=== PATIENT | male | born 1970 | race Caucasian/White ===

== ENCOUNTER 2017-05-15 09:40 | Inpatient (IN) ==
[~2017-05-15 09:40] MED LIST: Povidone-Iodine 22.5 ML, Sodium Chloride IRRigation 500 ML IR ONE
--- NOTE | 2017-05-15 09:54 | History & Physical Report ---
Date of Encounter: 05/15/17 Time of Encounter: 09:54 24 Hour HP Update - Instructions Instructions: If the History and Physical is less than 30 days old and was completed prior to A.M. admission and or procedure and has NOT been updated on calendar day of procedure please complete this update prior to performing procedure. - Update Patient reports changes in Medical Condition: No Changes in examination, assessment, or condition: No Changes in Medication: No Preop tests/diagnostics Reviewed: Yes Surgery Remains Indicated: Yes Consent for Planned Operative Procedure(s) Verified: Yes - Pre-Operative Checklist Preoperative Checklist Indicated: No Prophylactic Antibiotic Ordered: Yes Is VTE Prophylaxis Indicated?: Yes
--- NOTE | 2017-05-15 10:00 | Discharge Summary ---
Date of Encounter: 05/18/17 Time of Encounter: 07:44 - Discharge Diagnosis (1) Arthritis of left knee Priority: Primary Status: Chronic (2) Status post total left knee replacement Priority: Primary Status: Acute (3) Coronary artery disease Priority: Secondary Status: Chronic Qualifiers: Coronary Disease-Associated Artery/Lesion type: unspecified vessel or lesion type [place] vs. transplanted heart: [place] heart Associated angina: with unspecified angina Qualified Code(s): I25.119 - Atherosclerotic heart disease of [place] coronary artery with unspecified angina pectoris (4) History of myocardial infarction Priority: Secondary Status: Chronic (5) History of coronary artery stent placement Priority: Secondary Status: Chronic (6) Tobacco use Priority: Secondary Status: Chronic - Discharge Medications Home Medications: Aspirin [Lo-Dose Aspirin EC] 81 mg PO DAILY 10/21/16 [History] Atorvastatin [Lipitor] 40 mg PO HS 10/21/16 [History] Cyclobenzaprine [Flexeril] 10 mg PO TID #10 tablet 10/21/16 [Rx] Ibuprofen [Motrin] 800 mg PO Q8HR #20 tablet 10/21/16 [Rx] Nitroglycerin [Nitrostat] 0.4 mg SL Q5M 10/21/16 [History] Venlafaxine XR (24 HR) [Effexor XR] 75 mg PO DAILY 10/21/16 [History] hydrOXYzine HCl [Hydroxyzine HCl] 25 mg PO Q8H 10/21/16 [History] traZODone [TraZODone] 50 mg PO HS 10/21/16 [History] Magnesium Oxide [Magnesium] 500 mg PO DAILY 05/15/17 [History] OxyCODONE Immed Rel [Roxicodone 5 MG] 5 mg PO Q4HR PRN #24 tablet 05/15/17 [Rx] Allergies/Adverse Reactions: 3 Allergy/AdvReac Type Severity Reaction Status Date / Time acetaminophen [From NyQuil] Allergy Difficulty Verified 04/22/17 09:31 Breathing dextromethorphan Allergy Difficulty Verified 04/22/17 09:31 [From NyQuil] Breathing doxylamine [From NyQuil] Allergy Difficulty Verified 04/22/17 09:31 Breathing pseudoephedrine [From NyQuil] Allergy Difficulty Verified 04/22/17 09:31 Breathing Primary care physician: Maggie Varner - Patient Status Disposition: Home Health Service Condition: Good Functional capacity at discharge: uses cane/walker Overall status at discharge: patient is progressing back to baseline - Discharge Instructions Follow Up With: Omero Ruff MD [Partnered Physician] - 05/21/17 1:30 pm Maggie Varner [Primary Care Provider] - Additional Instructions: Discharge Instructions: Total Knee Replacement Please call [facility] ([phone]), your Primary Care Physician, or report to the Emergency Room if you have any of the following symptoms: Nausea, vomiting, fever greater that 101.5, swelling, chest pain, shortness of breath, increased pain/redness/drainage/odor for your incision site, numbness/ tingling, or any other concerning symptoms. ACTIVITY:Weight-bearing as tolerated. You may progress off support (crutches or walker) as tolerated. MEDICATIONS: Upon discharge resume your home medications. Take all the medications as prescribed. Take a stool softener if taking narcotic pain medications. Stool softeners are only effective if you drink enough fluids. Drink 6-8 glass of water or fluids a day, unless this is not allowed for another health problem. Despite using stool softeners, if you haven't had a bowel movement in 3 days, please switch to a gentle laxative. Gentle laxatives are sold over the counter. You should have a bowel movement within 24 hours, if not call the office. You will be discharged from the hospital with a prescription for pain medication. You are encouraged to decrease the use of narcotic pain medication as tolerated. Should you require a refill, please call the office. [facility] prescribes narcotic pain medication for only 4-6 weeks after surgery. If you require pain medication beyond this time period, you may be referred to your Primary Care Physician or to the Pain Clinic for further evaluation. Plan ahead for refills on pain medication as many narcotics either need to be picked up at the office or mailed. It is best to call 48-72 hours in advance of needing a prescription refill so you don't run out of medication. To help control the post-operative pain, you may take NSAIDs (Aleve,Advil, Motrin, Ibuprofen, Naprosyn) or Tylenol as prescribed on the bottle in addition to the pain medication. ANTICOAGULATION (blood thinners): Continue your Aspirin, Lovenox or Coumadin as prescribed to help prevent a blood clot in the leg or in the lungs. As long as your incision remains dry and you tolerate the NSAIDs (Aleve, Advil, Motrin, ibuprofen, naprosyn), it is OK to use the NSAIDS while you are taking your anticoagulation medication. Should your incision start to drain, stop the NSAID and contact our office. Common symptoms of blood clot in the legs include: localized pain, swelling, calf tenderness, redness or discoloration of the skin. Blood clot in the lung symptoms include: shortness of breath, rapid pulse, sweating, and chest pain that worsens with deep breathing, coughing up blood, lightheadedness, feelings of anxiety. If you experience any of these symptoms notify your physician immediately, go to the emergency room, or if having trouble breathing, call 911. WOUND CARE: Leave the dressing on for 7 to 10days. You may change the dressing if it becomes saturated greater than 50%. Do not get the dressing wet at anytime. Wash your hands with antibacterial soap, rinse and dry prior to any wound care. If you have juan alberto the visiting nurse or rehab facility can remove the stapes 10-14 days after surgery and place steri-strips across the wound. Leave the steri-strips in place until they fall off on their won. You may let water from the shower run on top of the steri-strips. If you do not have a visiting nurse or rehab facility, you will need to return to the office at 10-14 days for the juan alberto to be removed. If you have itching or redness around the dressing call the office. FOLLOW-UP: Please follow up with your surgeon in the orthopedic clinic in 4 weeks from the day of surgery. If you have juan alberto that need to be removed, you will need to come back to the office in 10-14 days from the day of surgery. - Hospital Course Hospital course: Mr. Nicholson is a 46 year old male Status post left total knee replacement The patient had an uneventful postoperative course. They received antibiotics and physical therapy and were discharged in stable condition. There will follow -up in the office in 2 weeks. - Time Spent with Patient Total time spent providing and/or coordinating discharge services:
[2017-05-15] MEDS ORDERED: CeFAZolin Syr 2,000MG/20 ML 2,000 MG/20 ML SYRINGE IVPB ONE (10:14)
[2017-05-15] MEDS ORDERED: Albuterol 2.5 MG/3 ML NEBULIZER IH ONE ×2 (10:14→12:05)
[2017-05-15] MEDS ORDERED: Ringers Solution, Lactated 1,000 ML IVC SCH ×3 (10:15→14:40)
[2017-05-15] MEDS ORDERED: Dexamethasone 4 MG/ML VIAL ONE (10:23)
[2017-05-15] MEDS ORDERED: *HR* FentaNYL (PF) 100 MCG/2 ML VIAL ONE (10:23)
[2017-05-15] MEDS ORDERED: Ondansetron 4 MG/2 ML VIAL ONE (10:23)
[2017-05-15] MEDS ORDERED: *HR* Midazolam HCl 2 MG/2 ML VIAL ONE (10:23)
[2017-05-15] MEDS ORDERED: Lidocaine -MPF 2% 2 ML VIAL ONE (10:23)
[2017-05-15] MEDS ORDERED: *HR* Propofol 200 MG/20 ML VIAL IVP ONE (10:23)
[2017-05-15] MEDS ORDERED: *HR* Succinylcholine 200 MG/10 ML VIAL IVP ONE (10:26)
[2017-05-15] MEDS ORDERED: Famotidine 20 MG/2 ML VIAL IVP ONE (10:38)
[2017-05-15] MEDS ORDERED: Pregabalin 75 MG CAPSULE PO ONE (10:39)
--- NOTE | 2017-05-15 10:43 | Anesthesia Evaluation PreOp ---
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 Other Medical History: Other (Depression) Anesthesia History: No Prior Anesthetic Complications Alcohol Use: occasionally Drug use: none Medications and Allergies Aspirin [Lo-Dose Aspirin EC] 81 mg PO DAILY 10/21/16 [History] Atorvastatin [Lipitor] 40 mg PO HS 10/21/16 [History] Cyclobenzaprine [Flexeril] 10 mg PO TID #10 tablet 10/21/16 [Rx] Ibuprofen [Motrin] 800 mg PO Q8HR #20 tablet 10/21/16 [Rx] Nitroglycerin [Nitrostat] 0.4 mg SL Q5M 10/21/16 [History] Venlafaxine XR (24 HR) [Effexor XR] 75 mg PO DAILY 10/21/16 [History] hydrOXYzine HCl [Hydroxyzine HCl] 25 mg PO Q8H 10/21/16 [History] traZODone [TraZODone] 50 mg PO HS 10/21/16 [History] Magnesium Oxide [Magnesium] 500 mg PO DAILY 05/15/17 [History] OxyCODONE Immed Rel [Roxicodone 5 MG] 5 mg PO Q4HR PRN #24 tablet 05/15/17 [Rx] 3 Allergy/AdvReac Type Severity Reaction Status Date / Time acetaminophen [From NyQuil] Allergy Difficulty Verified 04/22/17 09:31 Breathing dextromethorphan Allergy Difficulty Verified 04/22/17 09:31 [From NyQuil] Breathing doxylamine [From NyQuil] Allergy Difficulty Verified 04/22/17 09:31 Breathing pseudoephedrine [From NyQuil] Allergy Difficulty Verified 04/22/17 09:31 Breathing - Meds/Allergy Pre-op Review Medications Reviewed: Yes Allergies Reviewed: Yes Beta Blockers on Current Med List: No Anesthesia Results - Labs Laboratory Tests 04/22/17 04/22/17 09:43 09:43 Hgb 14.7 Hct 45.6 Plt Count 382 Sodium 138 Potassium 4.2 BUN 12 Creatinine 0.90 - Imaging EKG: report reviewed (SR non specific changes) Anesthesia Exam O2 Sat Height 1.8 m Height 1.8 m Height 1.8 m Weight 92.079 kg Weight 92.079 kg Weight 92.079 kg O2 Sat by Pulse Oximetry 98 Vital Signs Temp Pulse Resp BP Pulse Ox 98.4 F 63 18 136/84 98 05/15/17 10:20 05/15/17 10:20 05/15/17 10:20 05/15/17 10:20 05/15/17 10:20 Height: 5'11 Weight: 203 lbs NPO (# of Hours): MN Pain Scale: 0 - HEENT Pupil (Motor): Pupils equal, EOMI Mallampati: II Teeth: Normal Oral Opening: Greater than 3 - MACHINE OPERATOR FARMWORKER LOC: Oriented MACHINE OPERATOR FARMWORKER Motor: Normal RUE, Normal LUE, Normal RLE, Normal LLE, Normal Face MACHINE OPERATOR FARMWORKER Sensory: Normal: RUE, LUE, RLE, LLE, Face - Cardiac Rhythm: Regular Murmur: None JVD: No Carotid Bruit: No - Pulmonary Breath Sounds: bilateral Clear Respiratory Effort: Symmetrical Anesthesia Assess/Plan ASA Score: 3 (CAD CT Tobacco) Modified [place] Scale for Level of Consciousness: Cooperative, oriented, and tranquil Anesthetic Plan: General, Regional Monitoring Plan: Standard Monitors Recovery Plan: PACU (Discussed GA and RA, agrees to proceed)
[2017-05-15] MEDS ORDERED: ROPIVACAINE HCL/PF 0.5% 30 ML VIAL ONE (11:26)
[2017-05-15] MEDS ORDERED: Bupivacaine/Clonidine Syringe 1 EACH SYRINGE ONE (11:27)
[2017-05-15] MEDS ORDERED: Tetracaine/PF 20 MG/2 ML AMPUL ONE (11:27)
[2017-05-15] MEDS ORDERED: Ethanol\\Acetic Acid\\Na Ace\\Ben 1,000 ML IRRIG.SOLN IR ONE (11:32)
--- NOTE | 2017-05-15 11:43 | Anesthesia Procedures ---
Date of Encounter: 05/15/17 Time of Encounter: 10:40 Procedures: Anesthesia - Nerve Block Procedure Date: 05/15/17 Time: 11:20 Pre-op Diagnosis: Left Knee OA Arthropathy Surgical Procedure: Left TKA Checklist: Correct Patient Identifier Correct side: Left Blood Thinner: No Monitor Applied: EKG, BP, Pulse Oximetry Supplemental Oxygen via Nasal Cannula (L/min): 2 Sedation: Versed (mg): 2 Sedation: Fentanyl (mcg): 100 Indication: Post Op Analgesia Pre-op Neuro Deficits: No Block Type: Femoral, Other (IPACK) Catheter placed: No Depth at skin (cm): 2 Sterile Technique: Yes Ultrasound used: Yes Anatomy identified: Yes Visual spread of Local: Yes Neuro Stimulation: Yes Nerve Stimulator Range: 0.2 - 0.4 mA Blood on Needle Aspiration: No Smooth Injection of Local: Yes Pain with Injection of Local: No Prep: Chlorhexadine Needle: 22 x 50 mm Stimuplex Local: 0.25% Bupivicaine w/Clonidine 20 mcg/cc, Tetracaine (20mg), Ropivacaine ( 0.5%) Volume (cc): 30cc Rop/20cc Bupiv Number of Attempts: 1 Complications: None/effective block Vitals: Vital Signs/O2 Sat/Glucose, Most Current Temp Pulse Resp BP Pulse Ox 05/15/17 11:42 75 16 139/84 97 05/15/17 11:25 70 18 137/81 97 05/15/17 10:20 98.4 F 63 18 136/84 98
[2017-05-15] MEDS ORDERED: *HR* HYDROmorphone (PF) 1 MG/ML SYRINGE IVP PRN (12:05)
[2017-05-15] MEDS ORDERED: Ondansetron 4 MG/2 ML VIAL IVP ONE (12:05)
[2017-05-15] MEDS ORDERED: Naloxone 0.4 MG/ML INJ IVP PRN ×2 (12:05→14:40)
[2017-05-15] MEDS ORDERED: *HR* HYDROmorphone 2 MG/ML SYRINGE ONE (12:26)
[2017-05-15] MEDS ORDERED: EPHEDrine 50 MG/ML VIAL ONE (12:28)
--- NOTE | 2017-05-15 13:08 | Orthopedic Operative Note ---
Date of procedure: 05/15/17 Pre-op diagnosis: Left knee arthritis Post-op diagnosis: same Procedure: Procedure: Left robotic-assisted Total knee replacement Estimated blood loss: 200 cc Hardware: Metal and polyethylene replacement. [place] Femur: 5 Tibia: 6 PS insert: 9 Patella: 39 Exam Under anesthesia: Flexion contracture 15 degrees 5 degrees of varus as calculated by the robot full flexion and no instability Procedural Notes: Grade 4 arthritic changes medial compartment grade 3 arthritic changes patellofemoral joint. Operative procedure: The patient was brought to the operating room and placed on the operating room table. After general anesthesia was administered the operative knee was examined. Findings were noted in the exam under anesthesia. The operative extremity was prepped and draped in sterile surgical fashion. The patient received IV antibiotics prior to skin incision. A standard midline incision was made centered over the patella. The incision was made through the skin and subcutaneous tissue. A medial parapatellar tendon approach was performed. Care was taken to preserve tissue along the medial aspect of the patella. And to protect the patella tendon. The deep MCL was released off the medial tibia. The infra patella fat pad was excised. The patella was everted and cut was made at the level of the insertion of the quadriceps and patella tendon. The patella was sized to a 39 the guide was seated and the lug holes are drilled. Knee was brought into flexion. Patient noted to have grade 4 arthritic changes medial compartment grade 3 arthritic changes patellofemoral joint. Steinmann pins were placed in the tibia and the femur for the tibial and femoral arrays respectively. Checkpoints were also placed in the tibia and the femur for calculation purposes. The knee including the femur and the tibial registered. Osteophytes, ACL and PCL were excised at this point. Extension and flexion were assessed with a valgus stress components were adjusted on the computer to balance the knee. Femoral cuts were made first with robotic assistance, these included the anterior cut posterior cuts chamfer cuts. Tibial cut was then performed with robotic assistance as well. Bone fragments were removed, as well as the medial and lateral meniscus. The size 5 femoral guide was seated box cut was made lug holes are drilled. The size 6 tibial tray was seated and prepared with the fin cutter. Trial reduction with the 9 PS Mar[place] revealed extension loss of 3 degrees 4 degrees varus and full flexion. No varus valgus instability. Trial reduction revealed excellent patella tracking. All trial components were removed all bony surfaces were irrigated. The Tibia was seated followed by the femur, The [place] size 9 was seated and secured patella. Patient had similar findings for motion and stability. The knee was then irrigated out with 2 L of pulse irrigation. The extensor mechanism was closed with #2 FiberWire suture and #2 PDS suture. The subcutaneous tissue was then irrigated and closed deep with #1 PDS suture superficially with 0 PDS suture and skin was closed with zip tie The patient was then placed in a sterile dressing and a postoperative brace extubated and transferred to recovery room in stable condition. Anesthesia: GETA Surgeon: Omero Ruff Was there an customer service assistant present: No Estimated blood loss (cc): 200 Condition: stable Disposition: PACU
[2017-05-15 14:06] LABS: Hemoglobin 13.1 g/dL (12.9-16.9)
--- NOTE | 2017-05-15 14:18 | Anesthesia Evaluation Post Op ---
Date of Encounter: 05/15/17 Time of Encounter: 14:20 - Vital Signs Vital Signs: Vital Signs/O2 Sat/Glucose, Most Current Temp Pulse Resp BP Pulse Ox 05/15/17 14:11 98.2 F 75 14 146/83 95 05/15/17 14:01 79 13 160/88 98 05/15/17 13:51 82 14 152/87 98 05/15/17 13:41 98.8 F 89 16 133/91 98 05/15/17 13:31 89 12 136/84 98 05/15/17 13:21 89 12 133/80 97 05/15/17 13:11 98.5 F 91 12 125/72 93 05/15/17 11:42 75 16 139/84 97 05/15/17 11:25 70 18 137/81 97 05/15/17 10:20 98.4 F 63 18 136/84 98 - Lungs Lungs: Clear Ascult./Percussion - Airway Airway: Non-obstructed - Cardiovascular Regular Rate - Mental Status Mental Status: Alert & Oriented, Answers Appropriately - Pain Pain Scale: 0 - Nausea Vomiting Nausea Vomiting: Not Present - Hydration Hydration: NPO - Discharge PostOp Status: Transfer Patient to floor
[2017-05-15] MEDS ORDERED: Ondansetron 4 MG/2 ML VIAL IVP PRN (14:40)
[2017-05-15] MEDS ORDERED: Nitroglycerin 0.4 MG TAB.SUBL SL PRN (14:40)
[2017-05-15] MEDS ORDERED: *HR* OxyCODONE Immed Rel 5 MG TABLET PO PRN (14:40)
[2017-05-15] MEDS ORDERED: Temazepam 15 MG CAPSULE PO PRN (14:40)
[2017-05-15] MEDS ORDERED: Sennosides 8.6 MG TABLET PO PRN (14:40)
[2017-05-15] MEDS ORDERED: MOM Conc 10 ML UD.LIQ PO PRN (14:40)
[2017-05-15] MEDS: *HR* OxyCODONE Immed Rel 5 MG TABLET PO PRN ×2 (15:52→23:12)
[2017-05-15] MEDS: Ibuprofen 800 MG TABLET PO SCH ×2 (15:53→23:08)
[2017-05-15] MEDS: hydrOXYzine pamoate 25 MG CAPSULE PO SCH ×2 (15:53→19:08)
[2017-05-15] MEDS: *HR* Enoxaparin 30 MG/0.3 ML SYRINGE SQ SCH (16:44)
[2017-05-15] MEDS: CeFAZolin Premix DUPLEX 2,000 MG/50 ML BAG IVPB SCH ×2 (16:44→23:08)
[2017-05-15] MEDS ORDERED: *HR* Enoxaparin 30 MG/0.3 ML SYRINGE SQ SCH (18:00)
[2017-05-15] MEDS: *HR* HYDROmorphone (PF) 1 MG/ML SYRINGE IVP PRN (18:56)
[2017-05-15] MEDS: Nicotine 21 MG PATCH.TD24 TD SCH (18:57)
[2017-05-15] MEDS ORDERED: traZODone 50 MG TABLET PO SCH (21:00)
[2017-05-16] MEDS: *HR* HYDROmorphone (PF) 1 MG/ML SYRINGE IVP PRN (02:29)
[2017-05-16 04:19] LABS: Hematocrit 34.7 % (37.5-50.1)
[2017-05-16 04:22] LABS: Hemoglobin 11.3 g/dL (12.9-16.9)
[2017-05-16 04:32] LABS: BUN/Creatinine Ratio 12 (6-26); Blood Urea Nitrogen 10 mg/dL (6-20); Calcium 8.8 mg/dL (8.6-10.3); Carbon Dioxide 28 mEq/L (23-29); Chloride 101 mEq/L (98-107); Glucose 119 mg/dL (70-105); Osmolality,Calculated 282 (280-300); Potassium 3.9 mEq/L (3.5-5.1); Sodium 136 mEq/L (136-145); eGFR For African Americans > 60 (> 60); eGFR For Non-African Americans > 60 (> 60)
[2017-05-16] MEDS: *HR* OxyCODONE Immed Rel 5 MG TABLET PO PRN ×2 (05:33→09:43)
[2017-05-16] MEDS: *HR* Enoxaparin 30 MG/0.3 ML SYRINGE SQ SCH (05:33)
[2017-05-16] MEDS ORDERED: hydrOXYzine pamoate 25 MG CAPSULE PO SCH (06:00)
[2017-05-16 08:07] VITALS: BP 134/78
[2017-05-16] MEDS: Ibuprofen 800 MG TABLET PO SCH (08:45)
[2017-05-16] MEDS: Nicotine 21 MG PATCH.TD24 TD SCH (08:55)
[2017-05-16] MEDS ORDERED: Magnesium Oxide 400 MG TABLET PO SCH (09:00)
[2017-05-16] MEDS ORDERED: Venlafaxine XR (24 HR) 75 MG CAP.ER.24H PO SCH (09:00)
[2017-05-16] MEDS ORDERED: Aspirin Enteric Coated 81 MG Tablet PO SCH (09:00)
== END 2017-05-16 11:15 | disposition home health service (06) | DRG 470 ==
LOC: SAMDAY 09:40 → 3NENU 14:14
PROVIDERS: ADMIT Orthopaedic Surgery; ATTEND Orthopaedic Surgery

== ENCOUNTER 2020-05-07 18:39 | Observation (INO) ==
[2020-05-07] MEDS ORDERED: Naloxone 0.4 MG/ML INJ IVP PRN (23:18)
[2020-05-07] MEDS ORDERED: Ondansetron ODT 4 MG TAB.RAPDIS SL PRN (23:18)
[2020-05-07] MEDS ORDERED: Perflutren Lipid Microsphere 1.3 ML in 0.9 % Sodium Chloride 8.7 ML IVP PRN (23:21)
[2020-05-08] MEDS: Acetaminophen 325 MG TABLET PO PRN ×2 (01:00→07:52)
[2020-05-08 01:53] LABS: Amorphous Sediment,Urine Few per hpf (None-Few); Bacteria,Urine Few per hpf (None-Few); Bilirubin,Urine Negative (Negative); Blood,Urine Negative (Negative); Clarity,Urine Turbid (Clear); Color,Urine Light-Yellow (Yellow); Glucose,Urine (UA) Normal (Normal); Ketones,Urine Negative (Negative); Leukocyte Esterase,Urine Negative (Negative); Mucus,Urine Few per lpf (None-Few); Nitrite,Urine Negative (Negative); Protein,Urine Trace mg/dL (Neg-Trace); RBC,Urine 0-3 per hpf (0-3); Specific Gravity,Urine 1.023 (1.010-1.025); Urobilinogen,Urine Normal (Normal)
[2020-05-08] MEDS: hydrOXYzine pamoate 25 MG CAPSULE PO SCH ×3 (02:00→15:59)
[2020-05-08 02:25] LABS: Basophils # 0.1 K/mcL (0.0-0.2); Basophils % 0.5 %; Eosinophils # 0.2 K/mcL (0.0-0.6); Hematocrit 41.6 % (37.5-50.1); Hemoglobin 13.4 g/dL (12.9-16.9); Immature Granulocytes % 0.3 % (0-4); Lymphocytes # 3.1 K/mcL (0.6-4.6); Mean Corpuscular HGB Conc 32.2 g/dL (31.6-35.5); Mean Corpuscular Hemoglobin 27.1 pg (28.0-33.3); Mean Corpuscular Volume 84.2 fL (83.0-100.0); Mean Platelet Volume 9.4 fL (9.4-12.4); Monocytes # 0.9 K/mcL (0.0-1.3); Neutrophils # 4.9 K/mcL (1.6-8.9); Platelet Count 319 K/mcL (140-400); Red Blood Count 4.94 M/mcL (4.19-5.50); Red Cell Distribution Width 12.7 % (11.5-14.5); Segmented Neutrophils % 53.2 %; White Blood Count 9.2 K/mcL (4.3-11.1)
[2020-05-08 02:33] LABS: INR 1.1; Prothrombin Time 12.2 Seconds (9.4-12.1)
[2020-05-08 02:45] LABS: Alanine Aminotransferase 24 Units/L (7-52); Albumin 4.1 g/dL (3.5-5.7); Albumin/Globulin Ratio 1.5 (1.1-2.2); Alkaline Phosphatase 71 Units/L (34-104); Aspartate Amino Transferase 19 Units/L (13-39); BUN/Creatinine Ratio 15 (6-26); Bilirubin,Total 0.3 mg/dL (0.3-1.0); Blood Urea Nitrogen 11 mg/dL (6-20); Carbon Dioxide 24 mEq/L (23-29); Chloride 105 mEq/L (98-107); Chol/HDL Ratio 4.6 (0-4.9); Cholesterol 192 mg/dL (< 200); Globulin 2.8 g/dL (2.4-3.5); Glucose 86 mg/dL (70-105); HDL Cholesterol 42 mg/dL (40-59); LDL Cholesterol,Calculated 116 mg/dL (< 100); Magnesium 2.2 mg/dL (1.6-2.6); Osmolality,Calculated 287 (280-300); Phosphorous 4.5 mg/dL (2.7-4.5); Potassium 3.7 mEq/L (3.5-5.1); Sodium 139 mEq/L (136-145); Total Protein 6.9 g/dL (6.4-8.9); Triglycerides 172 mg/dL (< 150); eGFR For African Americans > 60 (> 60); eGFR For Non-African Americans > 60 (> 60)
[2020-05-08 02:57] LABS: Thyroid Stimulating Hormone 5.956 mcIU/mL (0.340-5.600)
[2020-05-08 04:24] LABS: Estimated Average Glucose 120 mg/dl; Hemoglobin A1C 5.8 %
[2020-05-08] MEDS: Regadenoson 0.4 MG/5 ML SYRINGE IVP ONE (09:58)
[2020-05-08] MEDS: Venlafaxine XR (24 HR) 75 MG CAP.ER.24H PO SCH (10:29)
[2020-05-08] MEDS: Aspirin Enteric Coated 81 MG Tablet PO SCH (10:29)
[2020-05-08] MEDS: amLODIPine 5 MG TABLET PO SCH (10:29)
[2020-05-08] MEDS ORDERED: Acetaminophen/Aspirin/Caffeine TABLET PO PRN (12:54)
[2020-05-08] MEDS ORDERED: traZODone 50 MG TABLET PO PRN (12:54)
[2020-05-08 13:38] LABS: Triiodothyronine (T3) Free 3.35 pg/mL (2.50-3.90)
[2020-05-08] MEDS ORDERED: traZODone 50 MG TABLET PO SCH (21:00)
[2020-05-09] MEDS: hydrOXYzine pamoate 25 MG CAPSULE PO SCH ×2 (00:15→08:50)
[2020-05-09] MEDS ORDERED: Regadenoson 0.4 MG/5 ML SYRINGE IVP ONE (05:53)
[2020-05-09] MEDS: Regadenoson 0.4 MG/5 ML SYRINGE IVP ONE (07:52)
[2020-05-09] MEDS: Aspirin Enteric Coated 81 MG Tablet PO SCH (08:50)
[2020-05-09] MEDS: Venlafaxine XR (24 HR) 75 MG CAP.ER.24H PO SCH (08:50)
[2020-05-09] MEDS: amLODIPine 5 MG TABLET PO SCH (08:50)
[2020-05-09] MEDS ORDERED: Multivit/Ca/Min/Fe/FA 1 TAB TABLET PO SCH (09:00)
[2020-05-09] MEDS ORDERED: Loratadine 10 MG TABLET PO SCH (09:00)
[2020-05-09] MEDS ORDERED: Magnesium Oxide 400 MG TABLET PO SCH (09:00)
[2020-05-09 10:55] VITALS: BP 129/71
== END 2020-05-09 14:55 | disposition home or self-care (01) ==
LOC: CDU → SUATTDRO 22:46
PROVIDERS: ADMIT Internal Medicine; ATTEND Family Medicine